=== PATIENT | male | born 1975 | race Caucasian/White ===

== ENCOUNTER 2018-02-20 05:09 | Emergency (ER) | payer SELFPAY | END 2018-02-20 05:58 | disposition home or self-care (01) | LOC: MADERS 05:09 | DX: S30.0XXA Contusion of lower back and pelvis, initial encounter (principal); S00.81XA Abrasion of other part of head, initial encounter; V63.5XXA Driver of heavy transport vehicle injured in collision with car, pick-up truck or van in traffic accident, initial encounter | CPT/HCPCS: 99283 ==

== ENCOUNTER 2018-02-20 06:10 | Outpatient (CLI) | payer SELFPAY | END 2018-02-20 06:11 | disposition home or self-care (01) | LOC: MADLAB 06:10 | PROVIDERS: ATTEND Pharmacist Pharmacotherapy | DX: Z02.83 Encounter for blood-alcohol and blood-drug test (principal) | CPT/HCPCS: 36415 ==